=== PATIENT | female | born 1945 | race Caucasian/White ===

== ENCOUNTER 2021-06-26 10:46 | Emergency (ER) | payer OTHER ==
[~2021-06-26] VITALS: Ht 167.6 cm; Wt 81.7 kg
[2021-06-26] MEDS ORDERED: NORVASC 2.5 MG2.5 MG PO (10:58)
[2021-06-26 14:06] VITALS: BP 143/72
== END 2021-06-26 14:07 | disposition home or self-care (01) ==
LOC: M.ERS 10:46
DX: M79.605 Pain in left leg (principal); I10 Essential (primary) hypertension; Z79.899 Other long term (current) drug therapy